=== PATIENT | female | born 1935 | race Caucasian/White ===

== ENCOUNTER 2018-06-28 15:56 | Inpatient (IN) | payer BC, MEDICARE ==
[~2018-06-28] VITALS: Ht 172.7 cm; Wt 105.2 kg
[~2018-06-28 15:56] MED LIST: ASPI-1169 PO; DONE10TA11 PO; LEVO88TA5 PO
--- NOTE | 2018-06-28 16:10 | NUR ---
patient brought by rescue ambulance when staff at assisted living saw her sitting on the floor. patient a.ox1-2 confused with hx of dementia. per dtr at bedside patient usually does not know the date and knows where she is when she is at home. today patient just more lethargic per daughter. room air stable. tele nsr. temp 99.4 rectal. patient safety, skin, aspiration precautions in place.
[2018-06-28] MEDS ORDERED: IV NS 0.9% 1,000 ML BAG IV ONE ×2 (17:00→18:00)
[2018-06-28 17:04] LABS: APPEARANCE,URINE Slightly Cloudy (CLEAR); BILIRUBIN,URINE Negative (NEGATIVE); BLOOD, URINE Small Ery/uL (NEGATIVE); COLOR,URINE Dark (YELLOW); KETONES,URINE Trace (NEGATIVE); LEUKOCYTE ESTERASE ,URINE Negative (NEGATIVE); NITRITE, URINE Negative (NEGATIVE); PROTEIN,URINE 30 mg/dl (NEGATIVE); UGLUCOSE Negative (NEGATIVE); UROBILINOGEN,URINE 0.2 EU/dL (0.2)
[2018-06-28 17:15] LABS: BASOPHILS # (AUTO) 0.1 /CMM (0.0-0.2); BASOPHILS % (AUTO) 0.6 % (0.0-2.0); EOSINOPHILS % (AUTO) 0.1 % (0.0-6.0); HEMATOCRIT 43 % (33-45); HEMOGLOBIN 14.3 g/dL (11.5-14.8); LYMPHOCYTES # (AUTO) 0.5 /CMM (0.8-4.8); LYMPHOCYTES % (AUTO) 2.7 % (20.0-44.0); MEAN CORPUSCULAR HGB CONC 33 g/dl (31.0-36.0); MEAN CORPUSCULAR VOLUME 86 fL (82-100); MONOCYTES # (AUTO) 0.9 /CMM (0.1-1.30); MONOCYTES % (AUTO) 4.9 % (2.0-12.0); NEUTROPHILS # (AUTO) 16.8 /CMM (1.8-8.9); NEUTROPHILS % (AUTO) 91.7 % (43.0-81.0); PLATELET COUNT (AUTO) 161 /CMM (150-450); RED BLOOD CELL COUNT(AUTO) 5.03 MIL/uL (4.0-5.2); WHITE BLOOD COUNT (AUTO) 18.3 K/uL (4.3-11.0)
[2018-06-28 17:25] LABS: CARBON DIOXIDE 26 mmol/L (21-32); CHLORIDE 100 mmol/L (98-107); GLUCOSE 119 mg/dL (74-106); POTASSIUM 4.1 mmol/L (3.5-5.1); SODIUM SERUM 136 mmol/L (136-145); UREA NITROGEN, BLOOD 12 mg/dL (7-18)
[2018-06-28 17:26] LABS: WBC,URINE 0-2 /HPF (0-3)
[2018-06-28 17:27] LABS: BACTERIA,URINE Few /HPF (None Seen); SQUAMOUS EPITHELIAL CELL,UR Few /HPF (None Seen)
--- NOTE | 2018-06-28 17:44 | NUR ---
[facility] PAGED, SOLAR BUSINESS DEVELOPER
[2018-06-28] MEDS ORDERED: CEFEPIME 1 GM VIAL IV ONE (18:00)
[2018-06-28 18:02] LABS: ALBUMIN 3.6 g/dL (3.4-5.0); BILIRUBIN,DIRECT 0.2 mg/dL (0.0-0.2); BILIRUBIN,TOTAL 0.9 mg/dL (0.2-1.0); TOTAL PROTEIN, SERUM 7.7 g/dL (6.4-8.2)
--- NOTE | 2018-06-28 18:05 | NUR ---
CALLED NURSING SUP. FOR TELE BED
[2018-06-28 18:10] LABS: BAND % (MANUAL) 1 % (0.0-5.0); LYMPHOCYTES % (MANUAL) 4 % (16-48); METAMYELOCYTES % 1 % (0-0); MONOCYTES % (MANUAL) 3 % (0-11.0); NEUTROPHILS % (MANUAL) 91 (42-76)
--- NOTE | 2018-06-28 18:21 | NUR ---
TELE 115-1
--- NOTE | 2018-06-28 18:25 | NUR ---
attempted to give report to rn. notified to call back
[2018-06-28] MEDS ORDERED: MAG HYDROX/AL HYDROX/SIMETH 30 ML UDC PO PRN (18:30)
[2018-06-28] MEDS ORDERED: MAGNESIUM HYDROXIDE 30 ML UDC PO PRN (18:30)
[2018-06-28] MEDS ORDERED: HYDROCODONE/APAP 5/325MG 1 EACH TABLET PO PRN (18:30)
[2018-06-28] MEDS ORDERED: ZOLPIDEM TARTRATE 5 MG TABLET PO PRN (18:30)
[2018-06-28] MEDS ORDERED: Z GUARD REMEDY 2 OZ OINT TP PRN (18:30)
[2018-06-28] MEDS ORDERED: ACETAMINOPHEN 325 MG TABLET PO PRN (18:30)
[2018-06-28] MEDS ORDERED: CEFEPIME 2 GM in IV D5W 100 ML IV ONE (18:30)
[2018-06-28] MEDS ORDERED: ONDANSETRON HCL/PF 4 MG/2 ML VIAL IVP PRN (18:30)
--- NOTE | 2018-06-28 18:40 | NUR ---
attempted again to give report. rn unable to get report.
--- NOTE | 2018-06-28 18:45 | NUR ---
TELE1/RN REPORT FROM ER REPORT RECEIVED FROM ER NURSE KUNAL FOR PT TO BE ADMITTED FOR SEPSIS UNDER THE CARE OF DR. DOBBINS. AWAITING FOR PT'S ARRIVAL.
--- NOTE | 2018-06-28 18:50 | NUR ---
report given to romeo jones.
--- NOTE | 2018-06-28 18:50 | NUR ---
soumyatent transfered to tele bed 115-1 stable. daughter at bedside. ivf bolus continuing per md order. slow to infuse as patient continues to bed arm. ivf transfered to left hand and infusing without complication. per md santos no tylenol until ct completed and resulted. rn aware. all belongings at bedside.
--- NOTE | 2018-06-28 19:19 | NUR ---
LIGHT BULB ASSEMBLERMARINE DRAFTER NOTE PATIENT RECEIVED IN [facility] AND TRANSFERRED TO BED. DAUGHTER AT BEDSIDE. PATIENT RECEIVING 2L BOLUS FROM ER TO BE COMPLETED 2100. PATIENT A/O X 2 AND SOMEWHAT CONFUSED. PATIENT COOPERATIVE BUT NEEDS PROMPTING. MEDICAL HISTORY GIVEN BY DAUGHTER IAN. PATIENT HAS 20 G LH IV RUNNING 1000ML/HR AND 20 G LFA SL. PATIENT DENIES CHEST PAIN AND SOB, O2 SATUARATION 90% PLACED PATIENT ON 2L O2. LUNG SOUNDS CLEAR TO AUSCULTATION. PATIENT DENIES ANY PAIN OR DISCOMFORT AT THIS TIME. PATIENT 97 SR ON THE MONITOR. PATIENT GIVEN BATH, REDNESS NOTED IN ABD FOLD, BREAST FOLDS, AND PERIANAL AREA. WOUND CONSULT IN AND PENDING. PATIENT AND DAUGHTER ORIENTED TO UNIT AND PLAN OF CARE. DAUGHTER AND PATIENT EXPRESSES UNDERSTANDING. CALL LIGHT AT BEDSIDE AND PT AND FAMILY INSTRUCTED ON USE. SAFETY PRECAUTIONS IN PLACE. BED IN LOWEST LOCKED POSITION. RN WILL CONTINUE TO MONITOR.
--- NOTE | 2018-06-28 19:19 | NUR ---
TELE1/SWIMMING POOL SALESPERSON - TELE 1 ROOM 115#2 PT ARRIVED VIA GURNEY AND HAS TRANSFERRED TO HOSPITAL BED. PT ENDORSED TO PM NURSE TO COMPLETE ADMISSION PROTOCOL.
--- NOTE | 2018-06-28 19:53 | NUR ---
PT NOT READY FOR ECH AND DUPLEX EXAMS. PROCEDURES BEING DONE BY RN AND ECOTHERAPIST.
[2018-06-28 20:00] VITALS: BP 158/87
--- NOTE | 2018-06-28 21:15 | NUR ---
EARLY INTERVENTION SPECIALIST NOTE PATIENT COMPLETED FLUID BOLUS CHALLENGE . 2L FULLY INFUSED, PATIENT DENIES CHEST PAIN AND SOB. PATIENT REQUESTS TO SLEEP. PATIENT REPOSITIONED FOR COMFORT.
[2018-06-29] VITALS (7 sets, daily range): BP systolic 119–136; BP diastolic 67–76
--- NOTE | 2018-06-29 06:27 | NUR ---
FREELANCE COURT STENOGRAPHER NOTE NO ACUTE CHANGES THROUGH THE SHIFT, NO S/S OF DISTRESS. ENDORSES POC TO AM FOR RAGHAV. SAFETY PRECAUTIONS IN PLACE ALL NEEDS MET.
--- NOTE | 2018-06-29 07:00 | NUR ---
TELE/RN INITIAL NOTES RECEIVED PATIENT IN BED RESTING COMFORTABLY AT THIS TIME. NO S/S OF ACUTE DISTRESS NOTED. RESPIRATION EVEN AND UNLABORED. NO SHORTNESS OF BREATH NOTED. PATIENT ALERT AND ORIENTED X2 DENIES ANY PAIN OR DISCOMFORT AT THIS TIME. SAFETY MEASURES MAINTAINED. CALL LIGHT WITHIN EASY REACH. WILL CONTINUE TO MONITOR THE PATIENT PER PLAN OF CARE.
[2018-06-29 07:04] LABS: BASOPHILS % (AUTO) 0.2 % (0.0-2.0); HEMATOCRIT 42 % (33-45); LYMPHOCYTES # (AUTO) 0.6 /CMM (0.8-4.8); LYMPHOCYTES % (AUTO) 4.8 % (20.0-44.0); MEAN CORPUSCULAR HGB CONC 33 g/dl (31.0-36.0); MEAN CORPUSCULAR VOLUME 85 fL (82-100); MONOCYTES # (AUTO) 0.8 /CMM (0.1-1.30); MONOCYTES % (AUTO) 6.1 % (2.0-12.0); NEUTROPHILS # (AUTO) 11.1 /CMM (1.8-8.9); NEUTROPHILS % (AUTO) 88.9 % (43.0-81.0); PLATELET COUNT (AUTO) 104 /CMM (150-450); RED BLOOD CELL COUNT(AUTO) 4.95 MIL/uL (4.0-5.2); WHITE BLOOD COUNT (AUTO) 12.5 K/uL (4.3-11.0)
[2018-06-29 07:23] LABS: CALCIUM, SERUM 8.9 mg/dL (8.5-10.1); CARBON DIOXIDE 22 mmol/L (21-32); CHLORIDE 101 mmol/L (98-107); CREATININE 0.7 mg/dL (0.6-1.3); GLUCOSE 111 mg/dL (74-106); PHOSPHORUS 2.6 mg/dL (2.5-4.9); POTASSIUM 3.8 mmol/L (3.5-5.1); SODIUM SERUM 134 mmol/L (136-145); UREA NITROGEN, BLOOD 9 mg/dL (7-18)
[2018-06-29] MEDS ORDERED: LEVOTHYROXINE SODIUM 88 MCG TABLET PO SCH (07:30)
[2018-06-29 08:21] LABS: CHOLESTEROL 118 mg/dL (<200); HDL CHOLESTEROL 56 mg/dL (40-60); LDL 62 mg/dL (0-99); THYROID STIMULATING HORMONE 0.198 uIU/mL (0.358-3.74); TRIGLYCERIDES 50 mg/dL (30-150)
--- NOTE | 2018-06-29 08:52 | NUR ---
WOUND CARE CONSULT: PT PRESENTS WITH MULTIPLE BRUISES AND SCABS, SCARS ON LOWER EXTREMITIES AND RASH TO GROIN/ABDOMINAL FOLDS AND BREASTFOLDS PRESENT ON ADMISSION. PT IS INCONTINENT. RECOMMENDATIONS MADE FOR SKIN CARE AND PROTECTION. DISCUSSED WITH NURSING STAFF. CURRENT RAGHU SCORE IS 17. MD IN AGREEMENT WITH PLAN OF CARE. WILL SEE PRN. Addendum: 06/29/18 at 0853 by WILBER ENCISO WNDNU Amended: Links added.
[2018-06-29] MEDS: DONEPEZIL 5 MG TABLET PO SCH (09:50)
[2018-06-29] MEDS: ASPIRIN 81 MG TAB.CHEW PO SCH (09:50)
[2018-06-29] MEDS: CLOTRIMAZOLE 1% 15 GM TUBE TP SCH ×2 (10:06→16:43)
--- NOTE | 2018-06-29 11:20 | NUR ---
TELE/RN PATIENT SEEN AND EXAMINED BY DR ANNALISA SALGUERO. DR AT BED SIDE GAVE VERBAL ORDERS TO GIVE PATIENT D5 NS @75 ML/HR 1000ML BAG PRN, PT EVALUATION AND PROVIDE PATIENT WITH REGULAR DIET. VERBAL ORDER READ BACK TO THE DOCTOR. ORDER NOTED AND CARRIED OUT. CONTINUE TO MONITOR PATIENT PER PLAN OF CARE.
[2018-06-29] MEDS: IV D5/ 0.9% NACL 1,000 ML IV PRN (11:41)
--- NOTE | 2018-06-29 13:14 | NUR ---
PLANER FEEDER NOTES REPORTED PT AFIB. WILL MONITOR AND NOTIFY MD.
[2018-06-29] MEDS: ENOXAPARIN SODIUM 100 MG/ML DISP.SYRIN SQ SCH (15:11)
[2018-06-29] MEDS: CARVEDILOL 6.25 MG TABLET PO SCH ×2 (15:12→21:53)
--- NOTE | 2018-06-29 16:00 | NUR ---
FULL SERVICE VENDING DRIVER NOTES DR KILGORE ROUNDED WITH PT. NEW ORDERS RECEIVED. WILL MONITOR PT CLOSELY ON TELE. PT EDUCATED ON NEW MEDS.
--- NOTE | 2018-06-29 18:36 | NUR ---
ADMINISTRATIVE INTERN END OF SHIFT NOTES PT IN BED, ASLEEP INTERMITTENTLY. AFIB ON TELE AT THIS TIME. CONFUSED AT TIMES, REQUESTING TO GET OUT OF BED TO WALK TO BATHROOM, PT REORIENTED TO LIMITATIONS D/T FALL PRECAUTIONS. BED ALARM ON, CALL LIGHT IN REACH. BED IN LOCKED/LOWEST POSITION. WILL ENDORSE TO PM NURSE FOR RAGHAV.
--- NOTE | 2018-06-29 19:15 | NUR ---
TELE/RN INITIAL NOTES RECEIVED PT IN BED, A/OX2, NOTED WITH CONFUSION. CONTROLLED AFIB ON TELE. ON 2L O2 VIA NC, NO SOB NOTED. NO C/O PAIN AT THIS TIME. WITH ONGOING IVF D5NS AT 75 ML/HR INFUSING WELL ON RFA G20 IV. C/D/I. SAFETY MEASURES IN PLACED. CALL LIGHT WITHIN EASY REACH. WILL CONT TO MONITOR
[2018-06-30] VITALS (7 sets, daily range): BP systolic 98–126; BP diastolic 47–59
[2018-06-30] MEDS: IV D5/ 0.9% NACL 1,000 ML IV PRN (01:11)
[2018-06-30] MEDS: ENOXAPARIN SODIUM 100 MG/ML DISP.SYRIN SQ SCH (03:43)
--- NOTE | 2018-06-30 06:49 | NUR ---
RN NOTES PT IN STABLE CONDITION. NO ACUTE CHANGES THROUGHOUT SHIFT. ALL NEEDS ANTICIPATED, SAFETY MEASURES OBSERVED AT ALL TIMES. ENDORSED TO AM RN FOR RAGHAV
--- NOTE | 2018-06-30 07:00 | NUR ---
FILLER WIPER OPENING NOTES RECEIVED PT LYING ON BED.ALERT/ORIENTED X2.ON TELE HR IS 67 WITH ATRIAL FLUTTER.ON NC 2 L O2 CONTINUOUSLY.NO SOB AND ACUTE DISTRESS NOTED.IV LINE IS ON RIGHT FA G20 WITH IV FLUID D5NS @75CC/HR.SITE IS CLEAN,DRY AND INTACT.NO INFILTRATION NOTED.NO PAIN NOTED FOR NOW.SAFETY IS MAINTAINED AT ALL TIMES.BED IS IN LOW POSITION AND LOCKED.SIDE RAILS UP X2.CALL LIGHT IS WITHIN REACH.WILL CONTINUE TO MONITOR THE PT CLOSELY.
[2018-06-30 07:18] LABS: BASOPHILS % (AUTO) 0.5 % (0.0-2.0); EOSINOPHILS % (AUTO) 1.3 % (0.0-6.0); HEMATOCRIT 40 % (33-45); HEMOGLOBIN 13.5 g/dL (11.5-14.8); LYMPHOCYTES # (AUTO) 1.2 /CMM (0.8-4.8); LYMPHOCYTES % (AUTO) 12.1 % (20.0-44.0); MEAN CORPUSCULAR HGB CONC 34 g/dl (31.0-36.0); MEAN CORPUSCULAR VOLUME 85 fL (82-100); MONOCYTES % (AUTO) 10.1 % (2.0-12.0); NEUTROPHILS # (AUTO) 7.3 /CMM (1.8-8.9); PLATELET COUNT (AUTO) 121 /CMM (150-450); RED BLOOD CELL COUNT(AUTO) 4.67 MIL/uL (4.0-5.2); WHITE BLOOD COUNT (AUTO) 9.6 K/uL (4.3-11.0)
[2018-06-30 07:50] LABS: CALCIUM, SERUM 8.3 mg/dL (8.5-10.1); CARBON DIOXIDE 23 mmol/L (21-32); CHLORIDE 106 mmol/L (98-107); CREATININE 0.7 mg/dL (0.6-1.3); GLUCOSE 116 mg/dL (74-106); POTASSIUM 3.8 mmol/L (3.5-5.1); SODIUM SERUM 138 mmol/L (136-145); UREA NITROGEN, BLOOD 12 mg/dL (7-18)
--- NOTE | 2018-06-30 09:09 | NUR ---
PRODUCER DIRECTOR NOTES PT IS REQUESTING TO BACK ON MEDS SYNTHROID BEFORE BREAKFAST,BUT IT NOTED WITH DISCONTINUED THE MEDS SYNTHROID TAB 88 MCG FROM YESTERDAY.PT MADE AWARE BU SHE IS STILL REQUESTING THE MEDS BACK AND REFUSING FOOD.DR.SAM PATTON ORDERED TO START SYNTHROID TAB 50MCG TODAY ONWARDS.PT AND FAMILY MADE AWARE.
[2018-06-30] MEDS: LEVOTHYROXINE SODIUM 50 MCG TABLET PO SCH (09:36)
[2018-06-30] MEDS: DONEPEZIL 5 MG TABLET PO SCH (10:17)
[2018-06-30] MEDS: CARVEDILOL 6.25 MG TABLET PO SCH ×2 (10:17→21:44)
[2018-06-30] MEDS: ASPIRIN 81 MG TAB.CHEW PO SCH (10:17)
[2018-06-30] MEDS: CLOTRIMAZOLE 1% 15 GM TUBE TP SCH ×2 (14:56→16:32)
[2018-06-30] MEDS ORDERED: RIVAROXABAN 10 MG TABLET PO SCH (17:00)
--- NOTE | 2018-06-30 18:00 | NUR ---
MS RN NOTES PT IS NOTED WITH MORE CONFUSED AND TRYING TO GET UP FROM THE BED.PAGED DR.SAM PATTON TO GET THE MEDS ORDER,WAITING FOR THE CALL BACK.
--- NOTE | 2018-06-30 18:41 | NUR ---
MS RN CLOSING NOTES PT IS LYING ON BED,STAYING CALM ON THE BED.STILL WAITING FOR THE DR. TO GET THE ORDER.NO SIGNIFICANT CHANGES NOTED IN THE SHIFT.RESPIRATION IS EVEN AND NONLABORED.ENDORSED TO VERIFICATION REP RN FOR RAGHAV.
--- NOTE | 2018-06-30 20:00 | NUR ---
RN/MS NOTES: RECEIVED PT. IN BED TRYING TO GET OUT THE THE BED. REORIENTED TO THE REALITY. ASSISTED BACK TO BED. ALERT TO SELF ONLY. STATED SHE IS HERE FOR A CONFERENCE AND THEN SHE NEEDS TO GO BACK. NO S/S OF RESPIRATORY DISTRESS NOTED. W/ O2 @ 2LPM VIA N/C SAT. 97%. HL ON RT. FA G 20 PATENT AND INTACT W/ NO S/S OF INFECTION/INFILTRATION NOTED. DENIES ANY C/O PAIN OR DISCOMFORT NOTED. CALL LIGHT W/ REACH. WILL CONTINUE TO MONITOR.
[2018-07-01 04:00] VITALS: BP 126/69
[2018-07-01 06:21] VITALS: BP 126/69
[2018-07-01 07:00] VITALS: BP 132/82
--- NOTE | 2018-07-01 07:00 | NUR ---
RN AM SHIFT NOTE PATIENT ALERT X2. CONFUSED, APPEARS TO NOT UNDERSTAND WHY SHE IS IN THE HOSPITAL. PATIENT IN BED, IV PATENT AND INTACT. BED IN LOW POSITION, FAMILY CALLED AND UPDATED DAUGHTER ON CONDITION. NO LABS DRAWN FOR TODAY. AWATING MD TO GIVE NEW ORDERS ON POSSIBLE D/C. CONTINUE TO SJ.
[2018-07-01] MEDS: DONEPEZIL 5 MG TABLET PO SCH (07:47)
[2018-07-01] MEDS: LEVOTHYROXINE SODIUM 50 MCG TABLET PO SCH (07:47)
[2018-07-01] MEDS: CARVEDILOL 6.25 MG TABLET PO SCH (07:54)
[2018-07-01] MEDS: CLOTRIMAZOLE 1% 15 GM TUBE TP SCH (07:55)
[2018-07-01 08:00] VITALS: BP 132/82
[2018-07-01 12:00] VITALS: BP 134/82
[2018-07-01] MEDS ORDERED: RIVA10TA PO (14:36)
[2018-07-01] MEDS ORDERED: CARV6.252 PO (14:36)
[2018-07-01] MEDS ORDERED: LEVO50TA PO (14:36)
--- NOTE | 2018-07-01 16:26 | NUR ---
COIL TAPER NOTE PATIENT OK FOR DISCHARGE, IV REMOVED, FLU VACCINE REFUSED BY PATIETN , DAUGHTER AT BEDSIDE, VITALS STABLE WNL , CHECKLIST SIGNED AND BELONGINGS GIVEN TO ROBERT. DAUGHTER OFFERED TRANSPORT TO ASSISTED LIVING. MD GAVE ORDER, CONTINUE TO MONITOR.
== END 2018-07-01 15:51 | DRG 871 ==
LOC: ER 16:00 → TELE1 18:28 → MEDSG1 06-30 19:01
PROVIDERS: ADMIT Student in an Organized Health Care Education/Training Program
DX: A41.9 Sepsis, unspecified organism (principal); G93.41 Metabolic encephalopathy; E87.2 Acidosis; L03.115 Cellulitis of right lower limb; I50.32 Chronic diastolic (congestive) heart failure; F03.90 Unspecified dementia, unspecified severity, without behavioral disturbance, psychotic disturbance, mood disturbance, and anxiety; I11.0 Hypertensive heart disease with heart failure; I48.91 Unspecified atrial fibrillation; E66.01 Morbid (severe) obesity due to excess calories; Z68.35 Body mass index [BMI] 35.0-35.9, adult; G47.33 Obstructive sleep apnea (adult) (pediatric); E03.9 Hypothyroidism, unspecified; I70.90 Unspecified atherosclerosis; M89.412 Other hypertrophic osteoarthropathy, left shoulder; M89.411 Other hypertrophic osteoarthropathy, right shoulder; M77.8 Other enthesopathies, not elsewhere classified; D72.829 Elevated white blood cell count, unspecified
CPT/HCPCS: 36415; 70450-TC; 71045-TC; 80048-TC; 80061-TC; 80076-TC; 81000-TC; 82962-TC; 83605-TC; 83735-TC; 84100-TC; 84439-TC; 84443-TC; 84484-TC; 85025-TC; 85730-TC; 87040-TC; 87081-TC; 87086-TC; 93307-TC; 93970-TC; A6402; G0378; J0692; J1650; J3490; J7030; J7042; J7060